=== PATIENT | female | born 1960 | race Caucasian/White ===

== ENCOUNTER 2022-03-09 11:41 | Outpatient (REF) | payer OTHER, SELFPAY ==
[2022-03-09 11:46] LABS: MANUAL DIFF FLAG NO
[2022-03-09 12:23] LABS: Basophils Absolute Auto 0.1 X10*3/uL (0.0-0.2); Basophils Percent Auto 0.6 % (0-2); Eosinophils Absolute Auto 0.3 X10*3/uL (0.0-0.4); Eosinophils Percent Auto 3.1 % (0-4); Hematocrit 51.1 % (37.0-47.0); Hemoglobin 16.4 g/dl (12.0-16.0); Imm Gran Abs Auto 0.04 X10*3/uL (0.00-0.03); Imm Gran Pct Auto 0.4 % (0.0-0.4); Mean Corpuscular HGB Conc 32.1 g/dl (31.0-35.0); Mean Corpuscular Hemoglobin 28.6 pg (27.0-33.0); Mean Corpuscular Volume 89.2 fL (80.0-98.0); Mean Platelet Volume 10.3 fL (9.4-12.3); Monocytes Absolute Auto 0.7 X10*3/uL (0.1-1.2); Monocytes Percent Auto 6.8 % (2-11); Neutrophils Absolute Auto 4.9 x10*3/uL (2.0-8.3); Neutrophils Percent Auto 49.1 % (45-73); Platelet Count 277 X10*3/uL (160-400); Red Blood Count 5.73 X10*6/uL (4.20-5.50); Red Cell Distribution Width 14.8 % (11.0-16.0)
[2022-03-09 12:25] LABS: Appearance Urine Clear; Color Urine Dark Yellow; Glucose Urine UA Negative (Negative); Leukocyte Esterase Urine Negative (Negative); Nitrite Urine Negative (Negative); Urine Blood Negative (Negative); Urine Ketones Negative (Negative); Urine Protein Negative (Neg-Trace)
[2022-03-09 12:42] LABS: Estimated Average Glucose 120 mg/dL; Hemoglobin A1c % 5.8 %
[2022-03-09 12:45] LABS: Alanine Aminotransferase 18 U/L (0-31); Albumin Level 4.2 g/dL (3.5-5.0); Alkaline Phosphatase 82 U/L (39-117); Anion Gap 14 (12-20); Aspartate Amino Transferase 16 U/L (5-31); Bilirubin Total 0.8 mg/dL (0.0-1.0); Blood Urea Nitrogen 19 mg/dL (9-16); Calcium 9.6 mg/dL (8.4-10.2); Carbon Dioxide 30 mmol/L (22-29); Chloride 103 mmol/L (96-108); Cholesterol 236 mg/dL; Estimated Glomerular Filt Rate > 60; Glucose Fasting 107 mg/dL (60-99); HDL Cholesterol 54 mg/dL; LDL Cholesterol Calculated 145 mg/dl; Potassium 4.5 mmol/L (3.3-5.1); Sodium 142 mmol/L (135-145); Total Protein 6.8 g/dL (6.5-8.0); Triglycerides 188 mg/dL
[2022-03-09 13:45] LABS: Creatinine Urine 135.35 mg/dL; Microalbum/Creatinine Ratio Ur 7.3 ug/mg cr
== END 2022-03-09 11:42 | disposition home or self-care (01) ==
LOC: HO.LNP 11:41
PROVIDERS: Visit Provider Internal Medicine
DX: Z00.00 Encounter for general adult medical examination without abnormal findings (principal); I10 Essential (primary) hypertension; R73.03 Prediabetes
CPT/HCPCS: 80053; 80061; 81003; 82043; 83036; 85025

== ENCOUNTER → 2023-01-14 10:51 | Outpatient (REF) | payer OTHER, SELFPAY ==
--- NOTE | 2023-01-14 | HM_ITS ---
cardiac event monitor Indication: Cardiac arrhythmia Technique: Patient was hooked up to cardiac event monitor on 01/14/2023 for total period of 30 days with compliance rate of about 55%. There was baseline artifact noted on some of the recording strips Findings Baseline was normal sinus rhythm with minimal heart rate of 75 beats per minute and a maximum heart rate 147 beats per minute. There were no significant pauses noted. There were frequent PVCs noted with total burden of 1.7%. Rare PACs noted with total burden of less than 1%. There were few episodes of fast supraventricular rate which could represent paroxysmal atrial tachycardia Patient marked the counter 3 times without any associated symptoms reported, correlating with either isolated PVC or sinus tachycardia. Conclusion: 1. Baseline was normal sinus rhythm without significant pauses 2. Frequent mostly isolated PVCs noted PVCs or sinus tachycardia 3. Short episodes of paroxysmal atrial tachycardia noted 4. Patient reported events without associated symptoms correlated with either isolated PVC or sinus tachycardia. No symptoms during episodes of paroxysmal atrial tachycardia MTDD
== END ==
LOC: HO.CARD 10:51
PROVIDERS: PCP Internal Medicine; Visit Provider Internal Medicine
DX: I49.9 Cardiac arrhythmia, unspecified (principal); I49.3 Ventricular premature depolarization
CPT/HCPCS: 93270

== ENCOUNTER → 2023-01-14 11:00 | Outpatient (BNV) | payer OTHER, SELFPAY | PROVIDERS: PCP Internal Medicine; Visit Provider Internal Medicine Cardiovascular Disease | DX: I49.3 Ventricular premature depolarization (principal) | CPT/HCPCS: 93272 ==

== ENCOUNTER 2024-10-01 13:21 | Outpatient (REF) | payer OTHER, SELFPAY ==
--- OUTSIDE RECORDS SUMMARY | 2023-12-10 07:41 | XMS_ITS ---
Author Organization Mohamud Haywood MD Address [address] [place] [phone] Care Team Providers Care [employer] Board Certified Orthotist Name Role Phone Mohamud Haywood Primary Care Provider [phone] Medications Medication SIG (Take, Route, Fr equency, Duration) Notes Start Date End Date Status Ativan 1 MG 1 tablet at bedtime as needed Orally Once a day for 10 days 12/10/2023 Ac tive Zithromax Z-Boni 250 MG 2 tablet on the f irst day, then 1 tablet daily for 4 days Orally Once a day for 5 days 03/25/2023 Active Encounters Encounter Location Date Provider Diagnosis Mohamud Haywood MD [facility] [address] [place] [phone] 12/10/2023 Mohamud Haywood Plan Of Treatment Medication Medication Name Sig Start Date Stop Date Notes Ativan 1 MG 1 tablet at bedtime as needed Orally Once a day for 10 days 12/10/2023 Zithromax Z-Boni 250 MG 2 tablet on the f irst day, then 1 tablet daily for 4 days Orally Once a day for 5 days 03/25/2023 Next Appt Details Provider Name:Mohamud watters, 04/05/2025 03:00:00 PM, [address] [place] [address], [address], [place], [place], [id number], Progress Notes * Tonia TEJEDA ADOB:1960 (63 yo F)Acc No.[id number]:12/10/2023 Patient: Tonia Davila :1960 A ge:63 Y S ex:Female Address:[address] [place] [address], [place] [address] * Refills Continue Ativan Tablet, 1 MG, Orally, 10 Tablet, 1 tablet at bedtime as needed, Once a day, 10 days Continue Zithromax Z-Boni Tablet, 250 MG, Orally, 6, 2 tablet on the first day, then 1 tablet daily for 4 days, Once a day, 5 days * true * Date: Generated for Eva sharma/Te/Mayuriitting on: 0 10/01/2024 01:35 PM EDT
[2024-10-01 13:28] LABS: MANUAL DIFF FLAG NO
--- OUTSIDE RECORDS SUMMARY | 2024-10-01 13:36 | XMS_ITS | Patient Health Record ---
Author Organization [facility] Address [address] [place] [id number] Care Team Providers Care Jail Guard Name Role Phone Mohamud Haywood MD Primary Care Provider Preet Garibay [phone] Allergies Allergen (clinical drug ingredient) Drug/Non Drug Allergy documented on EMR Reaction Allergy Type Onset Date Status Penicillin Unknown Drug Allergy Active clindamycin Clindamycin Unknown Drug Allergy Act daron lisinopril Lisinopril Unknown Drug Allergy Activ e Levaquin Unknown Drug Allergy Active sulfamethoxazole / trimethoprim Bactrim Unknown Drug Allergy Active Reason For Referral No Information Medications Medication SIG (Take, Route, Frequency, Duration) Notes Start Date End Date Status NexIUM 40 MG 1 capsule Orally Onc e a day for 30 day(s) Active Vitamin D Active Irbesartan-hydroCHLOROthia zide 150-12.5 MG Oral for 90 Active Social History Tobacco Use: Social History Observation Description Date Details (start date - stop date) Current Smoker NA - NA Tobacco Use/Smoking Question Answer Notes Patient is a current smoker How often do you smoke cigarettes? every day How many cigarettes a day do you smoke? 6-10 Alcohol Screen Question Answer Notes Did you have a drink contain ing alcohol in the past year? Yes How often did you have a dri nk containing alcohol in the past year? Never (0 point) How many drinks did you have on a typical day when you were drinking in the past year? 1 or 2 drinks (0 point) How often did you have 6 or more drinks on one occasion in the past year? Never (0 point) Points 0 Interpretation Negative Section Notes: Smoker 5-7 cigs per day; no sig alcohol Problems Problem Type SNOMED Code ICD Code Onset Dates Problem Status W/U Status Risk Notes Problem 762104669 Colon cancer screening (Z12.11) Active confirmed Problem 836949235 History of colon polyps (Z86.010) Active confirmed Problem 981851818 Gastroesophageal reflux disease, unspecified whether esophagitis present (K21.9) Active confirmed Plan Of Treatment Future Test Test Name Order Date UPPER GI ENDOSCOPY 09/04/2022 COLONOSCOPY 09/04/2022 Insurance Providers Payer Name Payer Address Payer Phone Subscriber Number Group Number Insured Name Patient Relationship to Insured Coverage Start Date Coverage End Date [facility] [address] [address] [place] [address] [id number] DACIA GRECO Self - patient is the insured Medical (General) History Medical History History ICD Code Kidney stones Hypertension GERD--previous upper endoscopies with Dr Ade Barnard History of polyps--previous colonoscopies with Dr. Barnard with removal of polyps--most recent one was approximately 2018 Denies [place],DM,CVA,Lung disease,renal dise ase Surgical History Surgery Date(Month/Year) 2 C-sections FELICIA Small bowel resection for a SBO nose surgery divated septum tonsillectomy and adenoidectomy
[2024-10-01 13:45] LABS: Hematocrit 49.1 % (37.0-47.0); Hemoglobin 16.4 g/dl (12.0-16.0); Imm Gran Abs Auto 0.04 X10*3/uL (0.00-0.03); Imm Gran Pct Auto 0.4 % (0.0-0.4); Lymphocytes Absolute Auto 3.6 X10*3/uL (1.2-4.9); Mean Corpuscular HGB Conc 33.4 g/dl (31.0-35.0); Mean Corpuscular Hemoglobin 29.4 pg (27.0-33.0); Mean Corpuscular Volume 88.2 fL (80.0-98.0); NRBC Abs Auto 0.000 X10*3/uL (0.0-0.012); NRBC Pct Auto 0.0 /100WBC (0.0-0.2); Platelet Count 240 X10*3/uL (160-400); Red Blood Count 5.57 X10*6/uL (4.20-5.50); White Blood Count 10.8 X10*3/uL (4.8-10.8)
[2024-10-01 13:46] LABS: Appearance Urine Clear; Glucose Urine UA Negative (Negative); PH 6.5 (5.0-9.0); Specific Gravity - Urine 1.010 (1.005-1.025)
[2024-10-01 14:03] LABS: Alanine Aminotransferase 26 U/L (0-31); Albumin Level 4.3 g/dL (3.5-5.0); Alkaline Phosphatase 84 U/L (39-117); Anion Gap 13 (12-20); Aspartate Amino Transferase 26 U/L (5-31); Blood Urea Nitrogen 12 mg/dL (9-16); Calcium 9.4 mg/dL (8.4-10.2); Carbon Dioxide 30 mmol/L (22-29); Chloride 103 mmol/L (96-108); Cholesterol 218 mg/dL (<200); Estimated Glomerular Filt Rate > 60; HDL Cholesterol 51 mg/dL (>40); Potassium 3.9 mmol/L (3.3-5.1); Sodium 142 mmol/L (135-145); Total Protein 6.9 g/dL (6.5-8.0); Triglycerides 170 mg/dL (<150)
[2024-10-01 14:06] LABS: Reflex LDLD? No
== END 2024-10-01 13:22 | disposition home or self-care (01) ==
LOC: HO.LNP 13:21
PROVIDERS: Visit Provider Internal Medicine
DX: I10 Essential (primary) hypertension (principal); E66.9 Obesity, unspecified; R73.03 Prediabetes
CPT/HCPCS: 80053; 80061; 81003; 82043; 82570; 84443; 85025